=== PATIENT | male | born 1975 | race Caucasian/White ===

== ENCOUNTER 2020-07-15 05:20 | Day surgery (SDC) | payer OTHER ==
--- NOTE | ~2020-07-15 | OP ---
PATIENT NAME: SG SUNSHINE MEDICAL RECORD: [id number] :75 LOCATION:[facility] ADMISSION DATE: SURGEON: ESTEFANY SEALS MD DATE OF OPERATION: 07/15/2020 PRINCIPAL DIAGNOSIS: Incarcerated ventral hernia. POSTOPERATIVE DIAGNOSIS: Incarcerated ventral hernias times 2. PROCEDURE: Open incarcerated ventral hernia repairs without mesh. SURGEON: Estefany Seals MD INSURANCE MANAGER: None. BLOOD LOSS: Minimal. ANESTHESIA: General. The patient has a diastasis rectus. I reviewed with him the pathophysiology of a diastasis rectus and how we would not be repairing it. He does have an umbilical hernia and on CT scan has a periumbilical hernia within the midline as well. I told him that I would recommend not doing a laparoscopic repair, but instead a midline repair with or without mesh. He elects to proceed. DESCRIPTION OF PROCEDURE: The patient was conveyed to the operating room electively on 07/15/2020. General anesthesia was induced by the anesthesia staff. The abdomen was sterilely prepped and draped. Within the umbilicus, a midline incision was accomplished. Flaps between the connective tissue and the underlying fascia were performed around the umbilical hernia defect. There was incarcerated fat within the umbilical hernia and this was excised. There was a secondary hernia caudad to this. It has incarcerated fat as well. The fascia was very attenuated around this hernia. Here again, I sharply cleaned overlying connective tissue from around the hernia margins. I then began a suture repair of the midline hernias. This was done with multiple interrupted horizontal mattress of 0 [place]. I felt that the repair was quite strong and I felt that it did not require mesh. The subdermis was approximated with interrupted 3-0 Vicryl. The skin was approximated with multiple interrupted 4-0 Vicryl Rapide suture and Dermabond. The patient was then extubated and conveyed to post-anesthesia care unit where he was in stable condition. TRANSINT:[id number] Voice Confirmation ID: [id number] DOCUMENT ID: [id number] OPERATIVE REPORT [id number] SG SUNSHINEESTEFANY ELLIOTT MD CC: SOPHIA RODRIGUEZ [id number] DICTATION DATE: 07/16/20 1041 CARCASS SPLITTER: 07/16/20 1540 [facility] 07/15/20 [facility] [address] [place] [address]
[~2020-07-15 05:20] MED LIST: COREG6.25 MG PO; NEXIUM20 MG PO; SYMBICORT 16010.2 GM INH
[2020-07-15 05:43] LABS: BASOPHILS 0.3 % (0-2); EOSINOPHILS 3.8 % (0-7); HEMATOCRIT 43.1 % (42.0-54.0); HEMOGLOBIN 14.8 g/dL (13.5-17.5); IMMATURE GRANULOCYTES 0.4 % (0-5); LYMPHOCYTE ABS# 2.73 10x3/uL (1.32-3.57); LYMPHOCYTES 35.6 % (15-50); MCH 27.9 pg (26.0-34.0); MCHC 34.3 g/dL (31.0-37.0); MCV 81.2 fL (80.0-100.0); MEAN PLATELET VOLUME 9.4 fL (7.4-10.4); NEUTROPHIL ABS# 3.67 10x3/uL (1.78-5.38); NEUTROPHILS 47.9 % (40-80); PLATELET COUNT 235 10x3/uL (130-400); RBC 5.31 10x6/uL (4.20-6.10); RDW 12.8 % (11.5-14.5); WBC 7.7 10x3/uL (4.8-10.8)
[2020-07-15 06:19] LABS: CALC OSMOLALITY 278 mosm/kg (275-300); CALCIUM 8.6 mg/dL (8.5-10.1); CHLORIDE - SERUM 105 mmol/L (98-107); CREATININE - SERUM 1.1 mg/dL (0.6-1.3); GLUCOSE 115 mg/dL (74-106); POTASSIUM - SERUM 3.8 mmol/L (3.5-5.1); SODIUM 139 mmol/L (136-145); UREA NITROGEN 12 mg/dL (7-18); eGFR NON AFRICAN AMERICAN 77 mL/min (90-120)
[2020-07-15] MEDS ORDERED: BUPRENORPHIN-N1 EACH SL (06:37)
[2020-07-15] MEDS ORDERED: ATIVAN1 MG PO (06:37)
== END 2020-07-15 12:46 | disposition home or self-care (01) ==
LOC: D.OPS 05:20
PROVIDERS: ATTEND Surgery
DX: K43.6 Other and unspecified ventral hernia with obstruction, without gangrene (principal); I10 Essential (primary) hypertension; J45.909 Unspecified asthma, uncomplicated